=== PATIENT | female | born 1995 | race Caucasian/White ===

== ENCOUNTER 2022-02-23 18:00 | Emergency (ER) | payer OTHER ==
[2022-02-23 18:31] LABS: BASOPHILS % (AUTO) 0.3 %; EOSINOPHILS % (AUTO) 0.3 %; HCT - HEMATOCRIT 35.1 % (37.0-47.0); HGB - HEMOGLOBIN 11.9 g/dL (12.0-16.0); LYMPHOCYTES # (AUTO) 2.1 10^3/uL (1.5-3.5); LYMPHOCYTES % (AUTO) 14.4 %; MEAN CORPUSCULAR HEMOGLOBIN 29.5 pg (27.0-31.0); MEAN CORPUSCULAR HGB CONC 33.9 g/dL (32.0-36.0); MEAN CORPUSCULAR VOLUME 86.9 fL (81.0-99.0); MEAN PLATELET VOLUME 9.4 fL (7.9-10.8); MONOCYTES % (AUTO) 6.6 %; NEUTROPHILS # (AUTO) 11.2 10^3/uL (1.5-6.6); NEUTROPHILS % (AUTO) 78.1 %; PLT - PLATELET COUNT 359 10^3/uL (130-450); RED BLOOD COUNT 4.04 10^6/uL (4.20-5.40); RED CELL DISTRIBUTION WIDTH 13.5 % (12.0-15.0); WHITE BLOOD COUNT 14.3 x10^3/uL (4.8-10.8)
[2022-02-23 18:37] LABS: INR 1.1 (0.8-1.2); PT - PROTHROMBIN TIME 12.2 secs (9.9-12.6)
[2022-02-23 18:53] LABS: ALBUMIN/GLOBULIN RATIO 1.4 (1.0-2.2); BILIRUBIN,TOTAL 1.6 mg/dL (0.2-1.0); CALCIUM 9.5 mg/dL (8.5-10.3); CREATININE 0.8 mg/dL (0.4-1.0); POTASSIUM 3.5 mmol/L (3.5-5.0); TOTAL PROTEIN 6.9 g/dL (6.7-8.2)
--- NOTE | 2022-02-23 19:22 | ED Physician Documentation ---
PD HPI ABD PAIN - Stated complaint Stated Complaint: FEMALE - Chief complaint Chief Complaint: Abd Pain - History obtained from History obtained from: Patient - Additional information Additional information: 26 yo 5 months , she had a medication at [facility] today, now is hemorrhaging, no pain. Feeling lightheaded and dizzy. She received RhoGAM yesterday from [facility]. Prior to the procedure she did have a known IUP per her with ultrasound confirmation at 8 weeks. Review of Systems Ten Systems: 10 systems reviewed and negative Constitutional: denies: Fever, Chills Nose: denies: Rhinorrhea / runny nose Cardiac: denies: Chest pain / pressure, Palpitations Respiratory: denies: Dyspnea, Cough PD PAST MEDICAL HISTORY - Allergies Allergies/Adverse Reactions: Allergies Allergy/AdvReac Type Severity Reaction Status Date / Time No Known Drug Allergies Allergy Verified 02/23/22 18:41 PD ED PE NORMAL - Vitals Vital signs reviewed: Yes - General General: Alert and oriented X 3, No acute distress, Other (She appears well, note the triage heart rate of 140 on my exam this is about 80.) - Abdomen Abdomen: Soft, Non tender - Neuro Neuro: Alert and oriented X 3, Normal speech Results - Vitals Vitals: Vital Signs - 24 hr 02/23/22 18:39 Temperature 36.8 C Heart Rate 140 H Respiratory 20 Rate Blood Pressure 116/73 O2 Saturation 98 Oxygen O2 Source Room air - Labs Labs: Laboratory Tests 02/23/22 02/23/22 02/23/22 18:23 18:23 18:23 WBC 14.3 H RBC 4.04 L Hgb 11.9 L Hct 35.1 L MCV 86.9 MCH 29.5 MCHC 33.9 RDW 13.5 Plt Count 359 MPV 9.4 Neut # (Auto) 11.2 H Lymph # (Auto) 2.1 [place] # (Auto) 1.0 Eos # (Auto) 0.0 Baso # (Auto) 0.0 Absolute Nucleated RBC 0.00 Nucleated RBC % 0.0 PT 12.2 INR 1.1 Sodium Potassium Chloride Carbon Dioxide Anion Gap BUN Creatinine Estimated GFR (MDRD) Glucose Calcium Total Bilirubin AST ALT Alkaline Phosphatase Total Protein Albumin Globulin Albumin/Globulin Ratio HCG, Quant Blood Type A NEGATIVE Antibody Screen POSITIVE 02/23/22 02/23/22 18:23 18:23 WBC RBC Hgb Hct MCV MCH MCHC RDW Plt Count MPV Neut # (Auto) Lymph # (Auto) Assumption # (Auto) Eos # (Auto) Baso # (Auto) Absolute Nucleated RBC Nucleated RBC % PT INR Sodium 137 Potassium 3.5 Chloride 105 Carbon Dioxide 24 Anion Gap 8.0 BUN 9 Creatinine 0.8 Estimated GFR (MDRD) 88 L Glucose 123 H Calcium 9.5 Total Bilirubin 1.6 H AST 15 ALT 21 Alkaline Phosphatase 54 Total Protein 6.9 Albumin 4.0 Globulin 2.9 Albumin/Globulin Ratio 1.4 HCG, Quant 054068.00 Blood Type Antibody Screen PD MEDICAL DECISION MAKING - ED course ED course: 26-year-old woman presents with hemorrhaging but no pain after medical . Her triage heart rate is 140 but on my exam it is closer to 80 with solid blood pressures. Her H&H is not too far off of normal and an ultrasound showing heterogenous uterus. Discussed case by phone with Dr. Lerma, on-call OB who offered 3 options which were discussed with the patient including home observation, and hospital observation or D&C and she opted for home observation. Departure - Departure Disposition: 01 Home, Self Care Clinical Impression: complicated by delayed or excessive hemorrhage Condition: Good Record reviewed to determine appropriate education?: Yes Instructions: ED Bleed Irregular Vaginal Comments: If you start feeling worse, if the bleeding continues at its current rate for more than 12 more hours, or if you pass out or something of that ilk please return for reevaluation.
[2022-02-23 19:35] VITALS: BP 107/72
--- NOTE | 2022-02-23 19:45 | Ultrasound Report ---
PROCEDURE: OB First Trimester w/TV INDICATIONS: preg vb TECHNIQUE: Real-time scanning was performed of the fetus and maternal pelvic organs, with image documentation. Endovaginal scanning was also performed to better visualize the fetus and maternal ovaries. COMPARISON: None FINDINGS: No sonographic evidence for intrauterine gestation. No intrauterine gestational sac seen. Retroverted uterus measuring 12.1 x 5.4 x 6.5 cm. Heterogeneous, thickened endometrium measuring appr oximately 1.8 cm in thickness. Mild vascularity within the endometrium. Maternal organs: Right corpus luteal cyst. No pelvic free fluid. No suspicious ovarian/adnexal masses . IMPRESSION: Thickened, heterogeneous endometrium without sonographic evidence for intrauterine gestation. No sono graphic evidence for ectopic identified this time. In the setting of a reported positive pr egnancy test, an early intrauterine gestation or ectopic not completely excluded. Recommend continued clinical surveillance with serial quantitative hCG levels and follow-up imaging as needed. Reviewed by: Mor Xiao MD on 02/23/2022 7:44 PM PDT Approved by: Mor Xiao MD on 02/23/2022 7:44 PM PDT Station ID: [id number]
== END 2022-02-23 19:37 | disposition home or self-care (01) ==
LOC: ED 18:00
DX: O03.6 Delayed or excessive hemorrhage following complete or unspecified spontaneous abortion (principal)
CPT/HCPCS: 36415; 80053; 84702; 85025; 85610; 86850; 86870; 86880; 86900; 86901; 99282; 99284

== ENCOUNTER 2024-02-24 07:08 | Emergency (ER) | payer OTHER ==
[2024-02-24 07:35] VITALS: O2SAT 100
[2024-02-24] MEDS: SODIUM CHLORIDE 0.9% 1,000 ML IV STA (07:38)
--- NOTE | 2024-02-24 07:45 | ED Physician Documentation ---
PD HPI ABD PAIN - Stated complaint Stated Complaint: VOMITING - Chief complaint Chief Complaint: Abd Pain - History obtained from History obtained from: Patient - Additional information Additional information: Otherwise healthy 28-year-old woman presents with what she thinks is likely food poisoning. On Saturday evening she ate pizza with some egg based garlic dip. Subsequently she started to feel sick about 10 hours later with vomiting diarrhea and upper abdominal pain. No sick contacts or fevers. PD PAST MEDICAL HISTORY - Past Medical History Past Medical History: No - Past Surgical History Past Surgical History: No - Present Medications Home Medications: Ambulatory Orders Medication Instructions Recorded Confirmed Loperamide [Imodium] 2 mg PO QID PRN #10 cap 02/24/24 Metoclopramide [Reglan] 10 mg PO Q6H PRN #20 tablet 02/24/24 - Allergies Allergies/Adverse Reactions: Allergies Allergy/AdvReac Type Severity Reaction Status Date / Time No Known Drug Allergies Allergy Verified 02/24/24 07:50 - Social History Does the pt smoke?: No Smoking Status: Never smoker Does the pt drink ETOH?: No Does the pt have substance abuse?: No Substance Use and Type: Marijuana - Immunizations Immunizations are current?: Yes - POLST Patient has POLST: No PD ED PE NORMAL - Vitals Vital signs reviewed: Yes - General General: Alert and oriented X 3, No acute distress - Abdomen Abdomen: Normal bowel sounds, Soft, Non tender - Back Back: No CVA TTP, No spinal TTP - Derm Derm: Normal color, Warm and dry - Neuro Neuro: Alert and oriented X 3 Results - Vitals Vitals: Vital Signs - 24 hr 02/24/24 07:22 Temperature 35.7 C L Heart Rate 78 Respiratory 20 Rate Blood Pressure 128/96 H O2 Saturation 100 Oxygen O2 Source Room air - Labs Labs: Laboratory Tests 02/24/24 02/24/24 07:45 07:45 Sodium 136 Potassium 3.2 L Chloride 103 Carbon Dioxide 17 L Anion Gap 16.0 H BUN 16 Creatinine 0.8 Estimated GFR (MDRD) 87 L Glucose 162 H Calcium 10.1 Total Bilirubin 2.4 H AST 14 ALT 16 Alkaline Phosphatase 59 Total Protein 7.6 Albumin 5.0 Globulin 2.6 Albumin/Globulin Ratio 1.9 Urine Color DARK YELLOW Urine Clarity HAZY Urine pH 6.0 Ur Specific [place] >=1.030 H Urine Protein TRACE Urine Glucose (UA) NEGATIVE Urine Ketones 15 H Urine Occult Blood NEGATIVE Urine Nitrite NEGATIVE Urine Bilirubin SMALL H Urine Urobilinogen 0.2 (NORMAL) Ur Leukocyte Esterase TRACE H Urine RBC 0-5 Urine WBC 0-3 Ur Squamous Epith Cells MANY Squamous H Urine Bacteria Moderate H Ur Microscopic Review INDICATED Urine Culture Comments NOT INDICATED Urine HCG, Qual NEGATIVE PD Medical Decision Making - ED course ED course: She presents with upper abdominal pain, vomiting and diarrhea. Most consistent with gastroenteritis. Will hydrate her and treat with Toradol and fluids. And droperidol. After the above interventions she was feeling better. Diagnostic testing demonstrates a CMP showing signs of dehydration with hypokalemia and mild hyperglycemia likely from stress. Her bilirubin was modestly elevated in the setting of otherwise normal liver enzymes. Note made that it was elevated when she was here for a visit 2 years ago so presume she may have asymptomatic hyperbilirubinemia AKA Gilbert's syndrome. Urinalysis concentrated but without significant signs of infection and test negative. Hypokalemia was treated with oral repletion. Departure - Departure Disposition: 01 Home, Self Care Clinical Impression: Gastroenteritis, Dehydration Condition: Good Record reviewed to determine appropriate education?: Yes Instructions: ED Gastroenteritis Viral Prescriptions: Loperamide [Imodium] 2 mg PO QID PRN #10 cap PRN Reason: Diarrhea Metoclopramide [Reglan] 10 mg PO Q6H PRN #20 tablet PRN Reason: nausea or headache Comments: Your potassium was mildly low and you received an oral potassium supplement here, should get better once you start eating and drinking again. Your bilirubin level and blood glucose levels were mildly elevated. Likely of no clinical significance other than being due to the physiological stress of your illness. Do mention it to your primary care physician though. Call your doctor to arrange a follow-up appointment, make the next available appointment. I sent your prescriptions electronically to the [facility] in [place]. Return if not better by Saturday morning, sooner if worse or if new symptoms develop. Forms: PCP List, Activity restrictions
[2024-02-24] MEDS: KETOROLAC 15 MG/ML VIAL IVP STA (07:51)
[2024-02-24] MEDS: DROPERIDOL 5 MG/2 ML VIAL IVP STA (07:51)
[2024-02-24 07:55] LABS: BILIRUBIN,URINE SMALL (NEGATIVE); GLUCOSE, URINE (UA) NEGATIVE (NEGATIVE); KETONES,URINE (UA) 15 mg/dL (NEGATIVE); LEUKOCYTE ESTERASE, URINE TRACE (NEGATIVE); NITRITE,URINE NEGATIVE (NEGATIVE); OCCULT BLOOD,URINE NEGATIVE (NEGATIVE); PROTEIN,URINE TRACE mg/dL (NEGATIVE); UROBILINOGEN,URINE 0.2 (NORMAL) E.U./dL (NORMAL)
[2024-02-24 07:56] LABS: CLARITY,URINE HAZY (CLEAR); HCG UR QUAL NEGATIVE
[2024-02-24 07:59] LABS: BACTERIA,URINE Moderate /HPF (None Seen); RBC,URINE 0-5 /HPF (0-5); WBC,URINE 0-3 /HPF (0-5)
[2024-02-24 08:00] LABS: SQUAMOUS EPITHELIAL CELL,UR MANY Squamous (<= Few)
[2024-02-24 08:09] LABS: ALBUMIN/GLOBULIN RATIO 1.9 (1.0-2.2); BILIRUBIN,TOTAL 2.4 mg/dL (0.2-1.0); CALCIUM 10.1 mg/dL (8.5-10.3); CREATININE 0.8 mg/dL (0.6-1.3); POTASSIUM 3.2 mmol/L (3.5-4.5); TOTAL PROTEIN 7.6 g/dL (6.4-8.9)
[2024-02-24] MEDS: POTASSIUM BICARB 25 MEQ TABLET PO STA (09:14)
[2024-02-24] MEDS: METOCLOPRAMIDE 10 MG/2 ML VIAL IVP STA (09:14)
[2024-02-24 09:51] VITALS: BP 126/87
== END 2024-02-24 09:44 | disposition home or self-care (01) ==
LOC: ED 07:08 → MERGE 07:08 → ED 09:44
DX: K52.9 Noninfective gastroenteritis and colitis, unspecified (principal); E86.0 Dehydration; E87.6 Hypokalemia
CPT/HCPCS: 36415; 80053; 81001; 81025; 96361; 96374; 96375; 99283; A9270; J2765; 81003; 87086

== ENCOUNTER 2024-02-25 14:39 | Outpatient (CLI) | payer OTHER | END 2024-02-25 14:40 | disposition EMS.NT | LOC: EMS 14:39 | DX: R68.84 Jaw pain (principal); R11.0 Nausea ==

== ENCOUNTER 2024-02-25 15:12 | Emergency (ER) | payer OTHER ==
[2024-02-25 15:35] VITALS: BP 117/89; O2SAT 98
== END 2024-02-25 17:13 | disposition left against medical advice (07) ==
LOC: EDUNIT# → ED 15:12
DX: Z53.21 Procedure and treatment not carried out due to patient leaving prior to being seen by health care provider (principal)
CPT/HCPCS: 80053; 83690; 83735; 84100; 85025